=== PATIENT | female | born 1975 | race Caucasian/White ===

== ENCOUNTER → 2016-05-18 | Day surgery (SDC) | payer OTHER ==
[~2016-05-18] MED LIST: ALPRAZolam 0.25 MG TAB ONE; BACITRACIN OINT 1 EACH PACKET TOPICAL ONE; LIDOCAINE 1% INJ 10MG/ML (20 ML MDV) ONE; SODIUM BICARB 4% 5 ML VIAL (0.48 MEQ/ML) ONE
--- NOTE | 2016-05-18 16:02 | MM ---
EXAMINATION TYPE: MG stereo VAD BX LT DATE OF EXAM: 05/18/2016 3:32 PM COMPARISON: NONE CLINICAL HISTORY: Left breast microcalcifications TECHNIQUE: Stereotactic guided core biopsy of left breast. FINDINGS: The procedure of stereotactic guided core biopsy was explained to the patient. Benefits, alternatives, and risks were discussed. An informed consent was then obtained. Local anesthesia was obtained with 1% lidocaine and bicarbonate. The shortness pathway for biopsy was chosen. Shortness pathway was superior approach. Procedure performed by the undersigned. The patient tolerated the procedure well without any immediate complication. The patient was kept in the radiology department for short stay after the procedure and then discharged home in stable condition. Targeted calcifications are identified in specimen mammogram. Post biopsy mammogram shows the clip to appear in satisfactory position relative to the targeted area of concern on the preprocedure images. IMPRESSION: SUCCESSFUL, UNCOMPLICATED STEREOTACTIC GUIDED CORE BIOPSY OF AREA OF CONCERN IN THE left BREAST, FULL PATHOLOGY RESULTS TO FOLLOW. Pathology Results: Benign BREAST, LEFT, STEREOTACTIC CORE BIOPSY: FIBROCYSTIC CHANGE (STROMAL FIBROSIS, CYST FORMATION, APOCRINE METAPLASIA, ADENOSIS, COLUMNAR CELL CHANGE AND DUCT HYPERPLASIA). FOCAL CALCIFICATIONS IDENTIFIED, PENDING XRAY OF CASSETTES AND POSSIBLE DEEPER SECTIONS. ADDENDUM BREAST, LEFT, STEREOTACTIC CORE BIOPSY: FIBROCYSTIC CHANGE (STROMAL FIBROSIS, CYST FORMATION, APOCRINE METAPLASIA, ADENOSIS, COLUMNAR CELL CHANGE AND DUCT HYPERPLASIA). CALCIFICATIONS IDENTIFIED. Recommendation Follow up mammogram of the left breast in 6 months. MTDD
== END ==
LOC: RADMAMWWP 13:38
PROVIDERS: ATTEND Internal Medicine
DX: N60.12 Diffuse cystic mastopathy of left breast (principal); N60.82 Other benign mammary dysplasias of left breast; N60.22 Fibroadenosis of left breast; N60.92 Unspecified benign mammary dysplasia of left breast; R92.1 Mammographic calcification found on diagnostic imaging of breast; R92.8 Other abnormal and inconclusive findings on diagnostic imaging of breast; R92.0 Mammographic microcalcification found on diagnostic imaging of breast
CPT/HCPCS: 88305; 19081; A4648; J2001

== ENCOUNTER → 2017-09-20 | Outpatient (CLI) | payer OTHER ==
--- NOTE | 2017-09-20 11:51 | MM ---
Reason for exam: follow-up at short interval from prior study. Last mammogram was performed 1 year and 4 months ago. History: Patient has history of high-risk lesion on a previous biopsy at age 40. Benign MG stereo VAD BX LT of the left breast, May 18, 2016. Taking hormonal contraceptives beginning at age 23. Physical Findings: Nurse did not find any significant physical abnormalities on exam. MG Diagnostic Mammo w CAD TASNEEM Bilateral CC and MLO view(s) were taken. Prior study comparison: May 11, 2016, left breast MG work up mamm w CAD LT. May 11, 2016, bilateral MG screening mammo w CAD. The breast tissue is extremely dense which could obscure a lesion on mammography. There are similar appearing right upper outer quadrant loosly grouped calcifications. Left biopsy marker noted. Ultrasound upper outer quadrant left breast to compare to prior ultrasound attention 1 o'clock. ASSESSMENT: Incomplete: need additional imaging evaluation, BI-RAD 0 RECOMMENDATION: Ultrasound of the left breast.
--- NOTE | 2017-09-20 12:08 | USB ---
Reason for exam: follow-up at short interval from prior study. History: Patient has history of high-risk lesion on a previous biopsy at age 40. Benign MG stereo VAD BX LT of the left breast, May 18, 2016. Taking hormonal contraceptives beginning at age 23. US Breast Limited LT Left limited breast ultrasound including focal area of concern, retroareolar and axilla demonstrates a 0.5 x 0.6 x 0.2 cm oval hypoechoic lesion at 12 o'clock, a 1.1 x 1.1 x 0.4 cm oval mixed lesion at 1 o'clock that was 1.2 x 0.9 x 0.4 cm on prior exam, a 0.3 x 0.3 x 0.3 cm oval cystic lesion at 1 o'clock, a 0.6 x 0.6 x 0.3 cm oval mixed lesion at 1 o'clock, a 0.4 x 0.3 x 0.2 cm oval lesion at 1 o'clock, a 0.7 x 0.6 x 0.3 cm oval mixed lesion at 2 o'clock previously described at 1 o'clock on prior exam and measured 0.5 x 0.2 x 0.5 cm, These are all probably benign. And a 0.4 x 0.5 x 0.3 cm oval cystic lesion at 2 o'clock, dilated ducts at 3 o'clock, and a 1.3 x 0.9 x 0.5 cm oval cystic lesion at 3 o'clock. Post-nipple ductal ectasia. These results were verbally communicated with the patient and result sheet given to the patient on 09/20/17. ASSESSMENT: Probably benign, BI-RAD 3 RECOMMENDATION: Ultrasound of the left breast in 6 months.
== END | disposition home or self-care (01) ==
LOC: RADMAMWWP 09:03
PROVIDERS: ATTEND Surgery
DX: R92.8 Other abnormal and inconclusive findings on diagnostic imaging of breast (principal)
CPT/HCPCS: 77066

== ENCOUNTER → 2018-04-30 | Outpatient (CLI) | payer OTHER ==
[2018-04-30 07:20] LABS: Basophils % (A) 1 %; Eosinophils # (A) 0.2 k/uL (0-0.7); Eosinophils % (A) 3 %; HCT 42.4 % (34.0-46.0); HGB 13.9 gm/dL (11.4-16.0); Lymphocytes # (A) 1.6 k/uL (1.0-4.8); Lymphocytes % (A) 25 %; MCH 29.8 pg (25.0-35.0); MCHC 32.7 g/dL (31.0-37.0); MCV 91.3 fL (80.0-100.0); Mean Platelet Volume 7.2; Monocytes # (A) 0.3 k/uL (0-1.0); Monocytes % (A) 5 %; Neutrophils # (A) 4.3 k/uL (1.3-7.7); Neutrophils % (A) 65 %; Platelet Count 279 k/uL (150-450); RBC 4.65 m/uL (3.80-5.40); RDW 13.5 % (11.5-15.5); WBC 6.6 k/uL (3.8-10.6)
[2018-04-30 16:04] LABS: Albumin 4.4 g/dL (3.80-4.90); Anion Gap 6.2 mmol/L (4.00-12.00); Calcium 9.3 mg/dL (8.7-10.3); Carbon Dioxide 25.8 mmol/L (21.6-31.8); Globulin 2.2 g/dL (1.6-3.3); LDL Cholesterol,Calculated 85.2 mg/dL (0.0-131.0); Potassium 4.1 mmol/L (3.5-5.5); Total Bilirubin 0.8 mg/dL (0.3-1.2); Total Protein 6.6 g/dL (6.2-8.2); VLDL Calculation 23.8 mg/dL (5.00-40.00)
== END ==
LOC: LABWHC1 06:42
PROVIDERS: ATTEND Internal Medicine
DX: Z00.01 Encounter for general adult medical examination with abnormal findings (principal)
CPT/HCPCS: 36415; 80053; 80061; 85025

== ENCOUNTER → 2018-05-03 | Outpatient (CLI) | payer OTHER ==
--- NOTE | 2018-05-06 09:47 | USB ---
Reason for exam: follow-up at short interval from prior study. History: Patient has history of high-risk lesion on a previous biopsy at age 40. Benign MG stereo VAD BX LT of the left breast, May 18, 2016. Taking hormonal contraceptives beginning at age 23. Physical Findings: Nurse Summary: several cystic areas (nurse kp). US Breast Limited BILAT Right limited breast ultrasound including focal area of concern, retroareolar and axilla demonstrates a 5 x 3 x 4mm oval, cystic lesion at 9 o'clock and a 7 x 4 x 7mm oval, cystic lesion at 11 o'clock. Left complete breast ultrasound includes all four quadrants, the retroareolar region and axilla. Finding demonstrates a 1.1 x 1.2 x 1.4cm cystic cluster at 1 o'clock BB, a 6 x 2 x 6mm oval, cystic, mixed lesion at 2 o'clock BB, a 6 x 3 x 6mm cystic cluster at 10 o'clock BB, a 1.6 x 0.3 x 1.3cm cystic cluster at 11 o'clock BB and a 5 x 3 x 6mm oval, hypoechoic lesion at 4 o'clock increased through transmission favor debris filled cyst. Multiple cystic areas visualized. These results were verbally communicated with the patient and result sheet given to the patient on 05/03/18. ASSESSMENT: Probably benign, BI-RAD 3 RECOMMENDATION: Follow-up diagnostic mammogram of both breasts in 6 months. Back on schedule. Ultrasound of the left breast in 6 months.
== END | disposition home or self-care (01) ==
LOC: RADUSWWP 15:33
PROVIDERS: ATTEND Internal Medicine
DX: N64.9 Disorder of breast, unspecified (principal)

== ENCOUNTER → 2018-10-17 | Outpatient (CLI) | payer OTHER | END | disposition home or self-care (01) | LOC: LABWHC1 14:43 | PROVIDERS: ATTEND Internal Medicine Sleep Medicine | DX: G47.419 Narcolepsy without cataplexy (principal) | CPT/HCPCS: 36415 ==

== ENCOUNTER → 2019-03-19 | Outpatient (CLI) | payer OTHER ==
--- NOTE | 2019-03-19 14:14 | MM ---
Reason for exam: additional evaluation requested from prior study. Last mammogram was performed 1 year and 6 months ago. History: Patient has history of high-risk lesion on a previous biopsy at age 40. Benign MG stereo VAD BX LT of the left breast, May 18, 2016. Taking hormonal contraceptives beginning at age 23. Physical Findings: Nurse did not find any significant physical abnormalities on exam. MG Diagnostic Mammo w CAD TASNEEM Bilateral CC and MLO view(s) were taken. Prior study comparison: September 20, 2017, bilateral MG diagnostic mammo w CAD TASNEEM. May 11, 2016, left breast MG work up mamm w CAD LT. The breast tissue is extremely dense which could obscure a lesion on mammography. There are similar right upper outer quadrant regional calcifications. Left biopsy marker noted. These results were verbally communicated with the patient and result sheet given to the patient on 03/19/19. ASSESSMENT: Incomplete: need additional imaging evaluation, BI-RAD 0 RECOMMENDATION: Ultrasound of the left breast. (as recommended on prior exam)
--- NOTE | 2019-03-19 14:18 | USB ---
Reason for exam: additional evaluation requested from abnormal screening. History: Patient has history of high-risk lesion on a previous biopsy at age 40. Benign MG stereo VAD BX LT of the left breast, May 18, 2016. Taking hormonal contraceptives beginning at age 23. US Breast LT Technologist: Celina Mak Left complete breast ultrasound includes all four quadrants, the retroareolar region and axilla. Finding demonstrates a 1.1 x 1.0 x 0.3cm cystic cluster at 1 o'clock, prior 1.1 x 1.2 x 1.4cm, a 0.7 x 0.6 x 0.5cm cystic cluster at 4 o'clock not seen on prior, a 0.7 x 0.6 x 0.4cm lesion at 10 o'clock, prior 0.6 x 0.3 x 0.6cm, similar in size, a 0.5 x 0.5 x 0.4cm lesion at 11 o'clock involuted from prior 1.6 x 0.3 x 1.3cm, a 0.8 x 0.3cm oval, cystic lesion at 2 o'clock probable lymph node, a 0.7 x 0.6 x 0.3cm lesion at 9 o'clock possibly seen on prior zone B/C 0.5 x 0.3cm and a 0.5 x 0.6 x 0.4cm possible heterogenous breast tissue at 9 o'clock. These results were verbally communicated with the patient and result sheet given to the patient on 03/19/19. ASSESSMENT: Probably benign, BI-RAD 3 RECOMMENDATION: Ultrasound of the left breast in 6 months.
== END | disposition home or self-care (01) ==
LOC: RADMAMWWP 07:13
PROVIDERS: ATTEND Internal Medicine
DX: R92.8 Other abnormal and inconclusive findings on diagnostic imaging of breast (principal)
CPT/HCPCS: 77066

== ENCOUNTER → 2019-09-19 | Outpatient (CLI) | payer OTHER ==
--- NOTE | 2019-09-19 11:53 | USB ---
Reason for exam: follow-up at short interval from prior study. History: Patient has history of high-risk lesion on a previous biopsy at age 40. Benign MG stereo VAD BX LT of the left breast, May 18, 2016. Taking hormonal contraceptives beginning at age 23. Physical Findings: Nurse did not find any significant physical abnormalities on exam. US Breast BILAT Right complete breast ultrasound includes all four quadrants, the retroareolar region and axilla. Finding demonstrates a 0.7 x 0.4 x 0.8cm cystic cluster at 8 o'clock, complex cyst, appeared as a simple cyst on 05/04/19, 6 month follow up recommended. Left complete breast ultrasound includes all four quadrants, the retroareolar region and axilla. Finding demonstrates a 1.4 x 0.4 x 1.4cm cystic cluster at 1 o'clock versus 1.1 x 1.0 x 0.3cm previously, slightly larger now, 6 month follow up recommended, a 0.7 x 0.3 x 0.7cm questionable lymph node, a 0.7 x 0.4 x 0.8cm cystic cluster at 5 o'clock versus 7 x 6 x 5mm previously, continued follow up recommended, a 0.6 x 0.4 x 0.6cm hypoechoic lesion at 5 o'clock with through transmission, possibly debris filled cyst, continued follow up recommended and a 0.7 x 0.3 x 0.6cm lesion at 9 o'clock versus 7 x 6 x 4mm previously, continued 6 month follow up. These results were verbally communicated with the patient and result sheet given to the patient on 09/19/19. ASSESSMENT: Probably benign, BI-RAD 3 RECOMMENDATION: Follow-up diagnostic mammogram and ultrasound of both breasts in 6 months. (right breast 8 o'clock, left whole breast)
== END | disposition home or self-care (01) ==
LOC: RADUSWWP 10:20
PROVIDERS: ATTEND Internal Medicine
DX: R92.8 Other abnormal and inconclusive findings on diagnostic imaging of breast (principal)

== ENCOUNTER → 2019-09-19 | Outpatient (CLI) | payer OTHER ==
[2019-09-19 08:03] LABS: HCT 42.2 % (34.0-46.0); HGB 13.4 gm/dL (11.4-16.0); MCH 29.3 pg (25.0-35.0); MCHC 31.7 g/dL (31.0-37.0); MCV 92.3 fL (80.0-100.0); Mean Platelet Volume 7.1; Platelet Count 268 k/uL (150-450); RBC 4.57 m/uL (3.80-5.40); RDW 12.4 % (11.5-15.5)
[2019-09-19 12:36] LABS: African American GFR (CKD) 105.4 (60.0-200.0); Albumin 4.2 g/dL (3.80-4.90); Albumin/Globulin Ratio 1.91 (1.60-3.17); Anion Gap 6.9 mmol/L (4.00-12.00); Calcium 9.2 mg/dL (8.7-10.3); Carbon Dioxide 25.1 mmol/L (21.6-31.8); Chol/HDL Ratio 3.45; Globulin 2.2 g/dL (1.6-3.3); LDL Cholesterol,Calculated 109.4 mg/dL (0.0-131.0); Non-African American GFR(CKD) 90.9 (60.0-200.0); Total Bilirubin 0.9 mg/dL (0.2-1.2); Total Protein 6.4 g/dL (6.2-8.2); VLDL Calculation 15.6 mg/dL (5.00-40.00)
== END | disposition home or self-care (01) ==
LOC: LABWHC1 07:37
PROVIDERS: ATTEND Internal Medicine
DX: Z00.01 Encounter for general adult medical examination with abnormal findings (principal); M25.00 Hemarthrosis, unspecified joint
CPT/HCPCS: 36415; 80053; 80061; 82306; 84443; 85027

== ENCOUNTER → 2020-04-05 | Outpatient (CLI) | payer OTHER ==
--- NOTE | 2020-04-06 14:39 | MM ---
Reason for exam: additional evaluation requested from prior study. Last mammogram was performed 1 year and 1 month ago. History: Patient has history of high-risk lesion on a previous biopsy at age 40. Benign MG stereo VAD BX LT of the left breast, May 18, 2016. Taking hormonal contraceptives beginning at age 23. Physical Findings: Nurse did not find any significant physical abnormalities on exam. MG Diagnostic Mammo w CAD TASNEEM Bilateral CC and MLO view(s) were taken. Prior study comparison: September 19, 2019, bilateral US breast BILAT. March 19, 2019, bilateral MG diagnostic mammo w CAD TASNEEM. September 20, 2017, bilateral MG diagnostic mammo w CAD TASNEEM. May 11, 2016, bilateral MG screening mammo w CAD. Previous mammotome biopsy in the left breast. Regional calcifications peripheral posterior upper outer quadrant right breast were present previously. Three punctate calcifications left upper outer quadrant do not form a group at this time, 6 month follow up recommended. Grouped calcifications central and lateral just adjacent seen to be new/increased, biopsy recommended. Additional anterior lateral calcifications on CC view, biopsy recommended. These results were verbally communicated with the patient and result sheet given to the patient on 04/05/20. ASSESSMENT: Incomplete: need additional imaging evaluation, BI-RAD 0 RECOMMENDATION: Ultrasound of both breasts.
--- NOTE | 2020-04-06 14:45 | USB ---
Reason for exam: additional evaluation requested from abnormal screening. History: Patient has history of high-risk lesion on a previous biopsy at age 40. Benign MG stereo VAD BX LT of the left breast, May 18, 2016. Taking hormonal contraceptives beginning at age 23. US Breast Limited BILAT Right limited breast ultrasound including focal area of concern, retroareolar and axilla demonstrates a 0.8 x 0.4 x 0.9cm cystic cluster at 8 o'clock versus 8 x 7 x 4mm previously. Left complete breast ultrasound includes all four quadrants, the retroareolar region and axilla. Finding demonstrates a 1.4 x 0.3 x 1.3cm cystic cluster at 1 o'clock versus 1.4 x 1.4 x 0.4cm previously, a 0.8 x 0.3 x 0.6cm questionable lymph node at 2 o'clock versus 7 x 7 x 3mm previously, a 0.8 x 0.3 x 0.6cm cystic cluster at 5 o'clock versus 8 x 7 x 4mm previously, a 0.5 x 0.4 x 0.5cm hypoechoic lesion at 5 o'clock versus 6 x 6 x 4mm previously and a 0.9 x 0.4 x 0.6cm hypoechoic lesion at 10 o'clock versus 7 x 6mm previously. Right scanned 6-12 o'clock. Left scanned entire breast. These results were verbally communicated with the patient and result sheet given to the patient on 04/05/20. ASSESSMENT: Suspicious, BI-RAD 4 RECOMMENDATION: Stereotactic core biopsy of the right breast. (2 sites, as marked on the MAG CC images) Called office with mammographic findings and has scheduled an appointment for the patient for 05/03/20 at 4:[address] Henley. Biopsy scheduled for 04/22/20 at 8:00. PRELIMINARY REPORT CALLED AND FAXED TO DR. HENLEY ON 04/06/20. Follow-up diagnostic mammogram of the left breast in 6 months. Ultrasound of both breasts in 6 months.
== END ==
LOC: RADMAMWWP 14:20
PROVIDERS: ATTEND Internal Medicine
DX: R92.1 Mammographic calcification found on diagnostic imaging of breast (principal)
CPT/HCPCS: 77066

== ENCOUNTER → 2020-04-26 | Day surgery (SDC) | payer OTHER ==
[2020-04-26 07:21] VITALS: RESP 16; TEMP 98.3
[2020-04-26 09:38] VITALS: BP 119/81; PULSE 69
--- NOTE | 2020-04-26 11:51 | MM ---
Stereotactic Mammotome core biopsy right breast x2. HISTORY: Microcalcifications right breast 2 sites The microcalcifications in question within the right breast were targeted by the undersigned. Procedure was performed by the undersigned. Informed consent was obtained and all of the patients questions were answered. The standard sterile technique was utilized and appropriate local anesthesia was obtained with 1% lidocaine and 1% lidocaine and epinephrine at each site.. Mammotome probe was advanced and multiple core samples were obtained and sent to pathology for interpretation at each site. Microclip markers were deployed at the sites of biopsy. Post procedural mammogram demonstrates appropriate deployment of radiopaque clip markers. The patient tolerated the procedure well and left the department in stable condition. Pathology results are pending. IMPRESSION: Successful stereotactic core biopsy right breast 2 sites with pathology results pending. Pathology Results: Benign A. RIGHT BREAST POSTERIOR, STEREOTACTIC CORE BIOPSY: Fibrocystic changes including cysts with calcifications, apocrine metaplasia, fibrosis, adenosis, columnar cell change, and mild usual type ductal hyperplasia. B. RIGHT BREAST ANTERIOR, STEREOTACTIC CORE BIOPSY: Fibrocystic changes including cysts with calcifications, fibrosis, adenosis and columnar cell change. Recommendation Follow up mammogram of the right breast in 6 months. LIBORIO
== END ==
LOC: RADMAMWWP 07:06
PROVIDERS: ATTEND Internal Medicine
DX: N60.11 Diffuse cystic mastopathy of right breast (principal); N60.21 Fibroadenosis of right breast
CPT/HCPCS: 88305; 19081; 19082; A4648; J2001

== ENCOUNTER → 2020-09-23 | Outpatient (CLI) | payer OTHER ==
[2020-09-23 16:04] LABS: Basophils # (A) 0.05 X 10*3/uL (0.00-0.10); Basophils % (A) 0.6 %; Eosinophils # (A) 0.07 X 10*3/uL (0.04-0.35); Eosinophils % (A) 0.8 %; HCT 40.7 % (37.2-46.3); HGB 12.9 g/dL (12.0-15.0); Lymphocytes % (A) 15.7 %; MCH 30.4 pg (27.0-32.0); MCHC 31.7 g/dL (32.0-37.0); Monocytes # (A) 0.51 X 10*3/uL (0.20-1.00); Monocytes % (A) 6.2 %; Neutrophils # (A) 6.33 X 10*3/uL (1.80-7.70); Neutrophils % (A) 76.3 %; Platelet Count 262 X 10*3/uL (140-440); RBC 4.24 X 10*6/uL (4.10-5.20); RDW 13.1 % (11.5-14.5); WBC 8.29 X 10*3/uL (4.50-10.00)
[2020-09-23 17:46] LABS: African American GFR (CKD) 79.9 (60.0-200.0); Albumin 4.7 g/dL (3.80-4.90); Albumin/Globulin Ratio 1.81 (1.60-3.17); Calcium 9.4 mg/dL (8.7-10.3); Chol/HDL Ratio 3.24; Globulin 2.6 g/dL (1.6-3.3); LDL Cholesterol,Calculated 105.4 mg/dL (0.0-131.0); Non-African American GFR(CKD) 68.9 (60.0-200.0); Potassium 4.3 mmol/L (3.5-5.5); Total Bilirubin 1.3 mg/dL (0.2-1.2); Total Protein 7.3 g/dL (6.2-8.2); VLDL Calculation 17.6 mg/dL (5.00-40.00)
== END | disposition home or self-care (01) ==
LOC: LABWHC1 10:34
PROVIDERS: ATTEND Internal Medicine
DX: Z00.01 Encounter for general adult medical examination with abnormal findings (principal); Z13.220 Encounter for screening for lipoid disorders; Z13.228 Encounter for screening for other metabolic disorders
CPT/HCPCS: 36415; 80053; 80061; 85025

== ENCOUNTER → 2020-11-03 | Outpatient (CLI) | payer OTHER ==
--- NOTE | 2020-11-03 14:39 | MM ---
Reason for exam: follow-up at short interval from prior study. Last mammogram was performed 7 months ago. History: Patient has history of high-risk lesion on a previous biopsy at age 40. Benign MG stereo VAD BX addl RT of the right breast, April 26, 2020. Benign MG stereo VAD BX RT of the right breast, April 26, 2020. Benign MG stereo VAD BX LT of the left breast, May 18, 2016. Taking hormonal contraceptives beginning at age 23. Physical Findings: Nurse did not find any significant physical abnormalities on exam. MG Diagnostic Mammo RT w CAD CC and MLO view(s) were taken of the right breast. Prior study comparison: April 05, 2020, bilateral MG diagnostic mammo w CAD TASNEEM. March 19, 2019, bilateral MG diagnostic mammo w CAD TASNEEM. The breast tissue is heterogeneously dense. This may lower the sensitivity of mammography. Stable sampled calcifications upper outer right breast. Previous mammotome biopsy in the right breast. No significant new findings when compared with previous films. These results were verbally communicated with the patient and result sheet given to the patient on 11/03/20. ASSESSMENT: Benign, BI-RAD 2 RECOMMENDATION: Routine screening mammogram of both breasts in 6 months. Back on schedule for April 2021.
== END | disposition home or self-care (01) ==
LOC: RADMAMWWP 13:07
PROVIDERS: ATTEND Internal Medicine
DX: R92.8 Other abnormal and inconclusive findings on diagnostic imaging of breast (principal)
CPT/HCPCS: 77065

== ENCOUNTER → 2020-11-17 | Outpatient (CLI) | payer OTHER ==
--- NOTE | 2020-11-17 08:03 | MR ---
EXAMINATION TYPE: MR sacroiliac joints wo con DATE OF EXAM: 11/17/2020 COMPARISON: None. HISTORY: Ankylosing spondylitis of spine, sacroiliitis, lower back pain x 6 months Standard multiplanar, multisequence MRI departmental protocol Multiplanar, multisequence images of the pelvis were acquired without contrast. Imaging performed foc using on bilateral sacroiliac joints. FINDINGS: Exam slightly suboptimal as only performed without contrast. Sacroiliac joints appear symme tric without suspicious narrowing or spurring. Adjacent joint spaces show no significant erosive almazan ges or adjacent edema. Visualized lower lumbar spine and sacrum appear within normal limits. Visualized portion of pelvic st ructures show nondilated bowel loops. No concerning pelvic fluid collection is seen. IMPRESSION: No MRI evidence for active or chronic significant sacroiliitis.
== END | disposition home or self-care (01) ==
LOC: RADMRIMAIN 06:06
PROVIDERS: ATTEND Nurse Practitioner Family
DX: M45.9 Ankylosing spondylitis of unspecified sites in spine (principal)
CPT/HCPCS: 72195

== ENCOUNTER → 2021-01-13 | Outpatient (CLI) | payer OTHER ==
[2021-01-13 09:05] LABS: Basophils # (A) 0.1 k/uL (0-0.2); Basophils % (A) 1 %; Eosinophils # (A) 0.1 k/uL (0-0.7); Eosinophils % (A) 2 %; HCT 41.2 % (34.0-46.0); HGB 13.5 gm/dL (11.4-16.0); Lymphocytes # (A) 1.3 k/uL (1.0-4.8); Lymphocytes % (A) 22 %; MCH 31.3 pg (25.0-35.0); MCHC 32.7 g/dL (31.0-37.0); MCV 95.5 fL (80.0-100.0); Mean Platelet Volume 7.1; Monocytes # (A) 0.3 k/uL (0-1.0); Monocytes % (A) 5 %; Neutrophils # (A) 3.7 k/uL (1.3-7.7); Neutrophils % (A) 67 %; Platelet Count 296 k/uL (150-450); RBC 4.32 m/uL (3.80-5.40); WBC 5.6 k/uL (3.8-10.6)
== END | disposition home or self-care (01) ==
LOC: LABPAT 07:55
PROVIDERS: ATTEND Obstetrics & Gynecology
DX: Z01.812 Encounter for preprocedural laboratory examination (principal)
CPT/HCPCS: 36415; 85025

== ENCOUNTER 2021-01-20 08:19 | Day surgery (SDC) | payer OTHER ==
[2021-01-19 12:19] VITALS: BMI 21.2
--- NOTE | 2021-01-19 17:25 | P.HPOB ---
History of Present Illness H&P Date: 01/19/21 Chief Complaint: Family planning Patient is a 45-year-old female who is completed her family planning and desires permanent sterilization. Risks/benefits/alternatives to laps scopic tubal occlusion with the scopes was reviewed with the patient in detail as well as surgical technique. Risks did include but were not limited to bleeding and infection, damage to bladder or bowel, vascular disease, nerve injuries potential need for further surgery. Failure rate of approximately 4 per thousand area this procedure she is aware is designed to be permanent and not designed to be reversed. On physical exam vital signs are stable and afebrile. Heart regular, lungs clear, extremities are without pain. Abdomen is soft and nontender pelvic exam is otherwise unremarkable. Family planning. Plan laps up tubal occlusion Filshie clips Past Medical History Past Medical History: No Reported History Additional Past Medical History / Comment(s): sjogren's disease, chronic back pain, positive covid 37 days ago-still a little residual congestion History of Any Multi-Drug Resistant Organisms: None Reported Past Surgical History: Breast Surgery Additional Past Surgical History / Comment(s): bilateral eye surgery, breast biopsy x2, oral surg. Past Anesthesia/Blood Transfusion Reactions: No Reported Reaction Additional Past Anesthesia/Blood Transfusion Reaction / Comment(s): is a redhead, seems to require more anethesia than normal per pt. Smoking Status: Former smoker - Past Family History Mother Family Medical History: No Reported History Medications and Allergies Home Medications Medication Instructions Recorded Confirmed Type Norethindrone AC-Eth Estradiol 1 tab PO DAILY 04/13/20 01/19/21 History [Loestrin 21 1.5-30 Tablet] Allergies Allergy/AdvReac Type Severity Reaction Status Date / Time adhesive Allergy Rash/Hives Verified 01/19/21 12:16 Exam Osteopathic Statement: *. No significant issues noted on an osteopathic structural exam other than those noted in the History and Physical/Consult. Intake and Output 01/19/21 01/19/21 01/19/21 06:59 14:59 22:59 Other: Weight 65.317 kg - OBG Physical Exam Breast: both: normal (no masses) Abdomen: bowel sounds normal, no diffuse tenderness, no bruit present, no guarding noted, no hepatomegaly, no splenomegaly, no mass Vulva: both: normal Vagina: normal moisture, no discharge Cervix: no lesion, no discharge Uterus: normal size, normal contour Adnexa: both: normal Anus/Rectum: normal perianal skin, no rectal mass, no hemorrhoids, heme negative
[~2021-01-20 08:19] MED LIST changes: -ALPRAZolam 0.25 MG TAB ONE; -BACITRACIN OINT 1 EACH PACKET TOPICAL ONE; +DEXAMETHASONE SOD PHOSPHATE 4 MG/ML 1 ML VIAL IV ONE; +LACTATED RINGERS 1,000 ML IV SCH; +LIDOCAINE 1% (10MG/ML) FOR IV START INTRADERMA PRN; -LIDOCAINE 1% INJ 10MG/ML (20 ML MDV) ONE; +MIDAZOLAM 2 MG/2 ML VIAL IV PRN; +Pre Op ABX Message 1 EACH MISC MISCELLANE ONE; -SODIUM BICARB 4% 5 ML VIAL (0.48 MEQ/ML) ONE
[2021-01-20 08:42] VITALS: RESP 16
[2021-01-20] MEDS ORDERED: BUPIVACAINE (PF) 0.25% 30 ML VIAL SQ ONE ×2 (08:47→09:59)
[2021-01-20] MEDS: ONDANSETRON 4 MG/2 ML VIAL IVP ONE ×2 (09:00→10:20)
[2021-01-20] MEDS ORDERED: SCOPOLAMINE 1.5MG/72HR PATCH TRANSDERM ONE (09:05)
[2021-01-20] MEDS ORDERED: .fentaNYL (PF) 50 MCG/ML 2 ML AMP ONE (09:26)
[2021-01-20] MEDS ORDERED: KETOROLAC 15 MG/ML 1 ML VIAL ONE (09:26)
[2021-01-20] MEDS ORDERED: LIDOCAINE 1% INJ 10MG/ML (20 ML MDV) ONE (09:26)
[2021-01-20] MEDS ORDERED: PROPOFOL 10 MG/ML 20 ML VIAL IV ONE (09:26)
[2021-01-20] MEDS ORDERED: ROCURONIUM 10 MG/ML (5 ML VIAL) IV ONE (09:26)
[2021-01-20] MEDS ORDERED: SUCCINYLCHOLINE CHLORIDE 100 MG/5 ML SYR IV ONE (09:26)
[2021-01-20] MEDS ORDERED: GLYCOPYRROLATE 0.2 MG/ML 2 ML VIAL ONE (09:26)
[2021-01-20] MEDS ORDERED: MIDAZOLAM 2 MG/2 ML VIAL ONE (09:26)
[2021-01-20] MEDS ORDERED: NEOSTIGMINE 1 MG/ML 10 ML VIAL ONE (09:26)
--- NOTE | 2021-01-20 10:14 | P.OP ---
Date of Procedure: 01/20/21 Preoperative Diagnosis: Family planning Postoperative Diagnosis: Same Procedure(s) Performed: Laparoscopic tubal occlusion Filshie clips Anesthesia: STEPHANY Surgeon: Flaco Mullins Estimated Blood Loss (ml): 3 IV fluids (ml): 700 Urine output (ml): 30 Pathology: none sent Condition: stable Disposition: same day Operative Findings: Normal female anatomy. Incidental finding of scarring of the colon to the anterior abdominal wall on the right side Description of Procedure: Patient was taken to the operating suite where a general anesthetic was found be adequate. She was prepped and draped in normal sterile fashion and placed in the dorsal lithotomy position. Initially a speculum was inserted into the vagina and the anterior lip of the cervix was identified and grasped with single-tooth tenaculum. Cervix was then sounded to 9 cm and a uterine manipulator was inserted without difficulty. Red rubber catheter was then used to drain the bladder of urine and all other incidents were were removed from the vagina. Gloves were then changed and attention was turned to abdominal portion of the procedure where 2 mL of quarter percent Marcaine were injected periumbilically and through this injected anesthetic a 5 mm skin incision was made and through this incision, under direct visualization with an optical trocar and sleeve the camera, the camera was inserted. Once peritoneal placement was assured gas was allowed to fully insufflate the abdomen and patient's placement steep Trendelenburg position. Second 8 mm skin incision was then made 3 cm above the pubic symphysis in the midline and a port and sleeve were inserted again inserted under direct visualization. Observations pelvis were noted this time. First the right sloping tube than the left fallopian tube pedicles clip applied 2 cm from uterine uterine cornu. With no bleeding noted in the mesosalpinx inspection the remainder of the abdomen revealed scarring of the ascending colon to the anterior abdominal wall the right side no clear reason for that was noted however it was left alone. All incidents were then removed and gas was allowed to expel from the abdomen. 5 deep breaths were provided during this process. 4-0 Vicryl was then used to close the incision subcuticularly and the remaining 8 mL of quarter Marcaine was injected around these incisions. Incidents were then removed from the vagina. Sponge, lap, needle counts were all correct 2. Patient was then taken to the recovery room in stable and satisfactory condition. Plan - Discharge Summary Discharge Rx Participant: No New Discharge Prescriptions: New Ibuprofen [Motrin] 600 mg PO Q6HR PRN #30 tab PRN Reason: Pain Acetaminophen-Codeine 300-30mg [Tylenol #3] 1 tab PO Q4H PRN #20 tablet PRN Reason: Pain No Action Norethindrone AC-Eth Estradiol [Loestrin 21 1.5-30 Tablet] 1 tab PO DAILY Discharge Medication List Norethindrone AC-Eth Estradiol [Loestrin 21 1.5-30 Tablet] 1 tab PO DAILY 04/13/20 [History] Acetaminophen-Codeine 300-30mg [Tylenol #3] 1 tab PO Q4H PRN #20 tablet 01/20/21 [Rx] Ibuprofen [Motrin] 600 mg PO Q6HR PRN #30 tab 01/20/21 [Rx] Follow up Appointment(s)/Referral(s): Flaco Mullins DO [Doctor of Osteopathic Medicine] - 2 Weeks Activity/Diet/Wound Care/Special Instructions: No heavy lifting, limit stairs and driving, and pelvic rest. If any high temperatures, heavy bleeding, or severe pain please notify our office. No tub baths for 2 weeks but showering is fine. Discharge Disposition: HOME SELF-CARE
[2021-01-20] MEDS: HYDROmorphone 0.5 MG/0.5 ML SYRINGE IVP PRN ×4 (10:19→10:35)
[2021-01-20 10:21] VITALS: TEMP 98.3
[2021-01-20] MEDS ORDERED: MEPERIDINE 50 MG/ML SYRINGE IVP ONE (10:40)
[2021-01-20 11:54] VITALS: BP 128/77; PULSE 67
== END 2021-01-20 12:14 | disposition home or self-care (01) ==
LOC: OR 08:19
PROVIDERS: ATTEND Obstetrics & Gynecology
DX: Z30.2 Encounter for sterilization (principal); M35.00 Sjogren syndrome, unspecified; G89.29 Other chronic pain; M54.9 Dorsalgia, unspecified; Z86.16 Personal history of COVID-19; Z98.890 Other specified postprocedural states; Z87.891 Personal history of nicotine dependence; Z79.3 Long term (current) use of hormonal contraceptives; Z91.09 Other allergy status, other than to drugs and biological substances; Z88.1 Allergy status to other antibiotic agents; Z88.8 Allergy status to other drugs, medicaments and biological substances
CPT/HCPCS: 58671; 81025; J2250; J1100; J2710; J2175; J2405; J2001; J3010; J1885; J0330; J2704; J1170

== ENCOUNTER → 2021-05-19 | Outpatient (CLI) | payer OTHER ==
--- NOTE | 2021-05-19 13:48 | ECHOF ---
Referral Reason:R00.2 Palpitations MEASUREMENTS -------- HEIGHT: 175.3 cm WEIGHT: 65.8 kg BP: RVIDd: 2.9 cm (< 3.3) IVSd: 0.9 cm (0.6 - 1.1) LVIDd: 4.1 cm (3.9 - 5.3) LVPWd: 1.2 cm (0.6 - 1.1) IVSs: 1.3 cm LVIDs: 2.9 cm LVPWs: 1.5 cm LA Diam: 2.8 cm (2.7 - 3.8) Ao Diam: 3.0 cm (2.0 - 3.7) AV Cusp: 1.8 cm (1.5 - 2.6) MV EXCURSION: 15.228 mm (> 18.000) MV EF SLOPE: 92 mm/s (70 - 150) EPSS: 0.3 cm MV E Sharath: 0.76 m/s MV DecT: 207 ms MV A Sharath: 0.65 m/s MV E/A Ratio: 1.17 RAP: 5.00 mmHg RVSP: 17.61 mmHg FINDINGS -------- Sinus rhythm. This was a technically good study. LV size, wall thickness and systolic function are normal, with an EF greater than 55%. The left marian tricular size is normal. The right ventricle is normal in size. The left atrial size is normal. The right atrial size is normal. There is mild aortic valve sclerosis. Mild mitral regurgitation is present. Mild tricuspid regurgitation present. Right ventricular systolic pressure is normal at < 35 mmHg. There is no pulmonic regurgitation present. There is no pericardial effusion. CONCLUSIONS -------- 1. LV size, wall thickness and systolic function are normal, with an EF greater than 55%. 2. The left ventricular size is normal. 3. The right ventricle is normal in size. 4. The left atrial size is normal. 5. The right atrial size is normal. 6. There is mild aortic valve sclerosis. 7. Mild mitral regurgitation is present. 8. Mild tricuspid regurgitation present. 9. There is no pericardial effusion. WINDING DEPARTMENT SUPERVISOR: Brandee Corona RDCS
== END | disposition home or self-care (01) ==
LOC: RADECHMAIN 11:56
PROVIDERS: ATTEND Family Medicine
DX: R00.2 Palpitations (principal); I34.0 Nonrheumatic mitral (valve) insufficiency; I07.1 Rheumatic tricuspid insufficiency
CPT/HCPCS: 93306

== ENCOUNTER → 2021-11-17 | Outpatient (CLI) | payer BC, OTHER ==
--- NOTE | 2021-11-18 08:02 | XR ---
EXAMINATION TYPE: XR Hip Complete LT DATE OF EXAM: 11/17/2021 COMPARISON: None HISTORY: Pain TECHNIQUE: 2 view left hip FINDINGS: Femoral head articulates with the acetabulum. Joint space is preserved. No acute fracture o r dislocation is evident. IMPRESSION: 1. No acute osseous abnormalities left hip
== END | disposition home or self-care (01) ==
LOC: RADXRMAIN 16:02
PROVIDERS: ATTEND Family Medicine
DX: M25.552 Pain in left hip (principal)
CPT/HCPCS: 73502

== ENCOUNTER → 2022-05-29 | Outpatient (CLI) | payer BC, OTHER ==
--- NOTE | 2022-05-30 19:07 | MM ---
Reason for Exam: Screening (asymptomatic). Last screening mammogram was performed 12 month(s) ago. Patient History: Menarche at age 15. First Full-Term at age 21. Patient has history of breast feeding. Hormonal Contraceptives, starting at age 23. 04/26/2020, Benign Core Biopsy on the right side. 04/26/2020, Benign Core Biopsy on the right side. 05/18/2016, Benign Core Biopsy on the left side. Last menstrual period: 05/28/2022 Risk Values: Lyla 5 year model risk: 1.8%. NCI Lifetime model risk: 12.3%. Prior Study Comparison: 04/05/2020 Bilateral Diagnostic Mammogram, [facility]. 11/03/2020 Right Diagnostic Mammogram, [facility]. 05/10/2021 Bilateral Screening Mammogram, [facility]. Tissue Density: The breast tissue is heterogeneously dense. This may lower the sensitivity of mammography. Findings: Analyzed By CAD. Residual microcalcifications posterior upper outer quadrant right breast with 2 microclip in the right from prior biopsies. Additional microclip left breast from prior biopsy. No significant change from prior exams. Overall Assessment: Benign, BI-RAD 2 Management: Screening Mammogram of both breasts in 1 year. 1. Patient should continue monthly self breast exams. 2. A clinical breast exam by your physician is recommended on an annual basis. 3. This exam should not preclude additional follow-up of suspicious palpable abnormalities. Electronically signed and approved by: Peyman Zaidi M.D. Radiologist
== END | disposition home or self-care (01) ==
LOC: RADMAMWWP 14:58
PROVIDERS: ATTEND Family Medicine
DX: Z12.31 Encounter for screening mammogram for malignant neoplasm of breast (principal)
CPT/HCPCS: 77063; 77067

== ENCOUNTER → 2022-12-25 | Outpatient (CLI) | payer BC, OTHER ==
[2022-12-25 11:06] LABS: Basophils # (A) 0.05 X 10*3/uL (0.00-0.10); Basophils % (A) 0.7 %; Eosinophils # (A) 0.25 X 10*3/uL (0.04-0.35); Eosinophils % (A) 3.7 %; HCT 38.4 % (37.2-46.3); HGB 12.7 g/dL (12.0-15.0); Lymphocytes # (A) 1.35 X 10*3/uL (0.90-5.00); Lymphocytes % (A) 19.8 %; MCH 30.8 pg (27.0-32.0); MCHC 33.1 g/dL (32.0-37.0); MCV 93.2 FL (80.0-97.0); Mean Platelet Volume 9.5 FL (9.5-12.2); Monocytes # (A) 0.65 X 10*3/uL (0.20-1.00); Monocytes % (A) 9.5 %; NRBC Per 100 WBC 0 X 10*3/uL (0.00-0.01); Neutrophils # (A) 4.51 X 10*3/uL (1.80-7.70); Platelet Count 240 X 10*3/uL (140-440); RBC 4.12 X 10*6/uL (4.10-5.20); RDW 13.2 % (11.5-14.5); WBC 6.83 X 10*3/uL (4.50-10.00)
[2022-12-25 11:34] LABS: BUN/Creat Ratio 18.62 Ratio (12.00-20.00); Blood Urea Nitrogen 14.9 mg/dL (9.0-27.0); Carbon Dioxide 24.6 mmol/L (21.6-31.8); Chloride 106 mmol/L (96-109); Glucose 110 mg/dL (70-110); Potassium 4.3 mmol/L (3.5-5.5); Sodium 139 mmol/L (135-145); T4, Free (Free Thyroxine) 0.89 ng/dL (0.80-1.80)
== END | disposition home or self-care (01) ==
LOC: LABWHC1 07:28
PROVIDERS: ATTEND Family Medicine
DX: R55 Syncope and collapse (principal)
CPT/HCPCS: 36415; 80048; 84439; 84443; 85025

== ENCOUNTER → 2022-12-29 | Outpatient (CLI) | payer BC, OTHER ==
--- NOTE | 2022-12-29 14:48 | CT ---
EXAMINATION TYPE: CT abdomen pelvis wo con CT DLP: 645 mGycm, Automated exposure control for dose reduction was used. DATE OF EXAM: 12/29/2022 2:15 PM COMPARISON: None CLINICAL INDICATION:Female, 47 years old with history of R31.29 OTHER MICROSCOPIC HEMATURIA; abdomina l discomfort, flank pain TECHNIQUE: Axial CT of the ;CT abdomen pelvis wo con;Sagittal and coronal reformats were created on a separate workstation. Contrast used: mL of , (none if empty) Oral contrast used: without Oral Contrast (none if empty) FINDINGS: LOWER CHEST: Unremarkable ABDOMEN LIVER: Unremarkable GALLBLADDER AND BILE DUCTS: Unremarkable. PANCREAS: Unremarkable. SPLEEN: Unremarkable. ADRENAL GLANDS: Unremarkable. KIDNEYS AND URETERS: No evidence of hydronephrosis or renal calculus. The ureters are unremarkable. PELVIS BLADDER: Unremarkable REPRODUCTIVE: Bilateral tubal ligation clips. ABDOMEN & PELVIS STOMACH AND BOWEL: No evidence of bowel obstruction. Large amount stool throughout the colon. PERITONEUM/RETROPERITONEUM: No evidence of pneumoperitoneum or free fluid. VASCULATURE: No evidence of aortic aneurysm. MUSCULOSKELETAL: No acute osseous abnormalities LYMPH NODES: No gross evidence for lymphadenopathy. SOFT TISSUE/ABDOMINAL WALL: Unremarkable IMPRESSION: No evidence for renal calculus or obstructive uropathy. There is moderate to large amount stool throu ghout the colon. Correlate for constipation.
== END | disposition home or self-care (01) ==
LOC: RADCTMAIN 14:02
PROVIDERS: ATTEND Family Medicine
DX: R31.29 Other microscopic hematuria (principal); R19.5 Other fecal abnormalities
CPT/HCPCS: 74176

== ENCOUNTER → 2023-12-17 | Outpatient (CLI) | payer BC, OTHER ==
--- NOTE | 2023-12-24 12:04 | MM ---
Reason for Exam: Screening (asymptomatic). Last mammogram was performed 1 year(s) and 7 month(s) ago. Patient History: Menarche at age 15. First Full-Term at age 21. Patient has history of breast feeding. Hormonal Contraceptives, starting at age 23. 04/26/2020, Benign Core Biopsy on the right side. 04/26/2020, Benign Core Biopsy on the right side. 05/18/2016, Benign Core Biopsy on the left side. Last menstrual period: 12/16/2023 Risk Values: Lyla 5 year model risk: 1.5%. NCI Lifetime model risk: 11.7%. Prior Study Comparison: 11/03/2020 Right Diagnostic Mammogram, [facility]. 05/10/2021 Bilateral Screening Mammogram, [facility]. 05/29/2022 Bilateral MG 3D screening mammo w/cad, [facility]. Tissue Density: The breasts are heterogeneously dense, which may obscure small masses. Findings: Analyzed By CAD. Bilateral breast biopsy clips. Right breast: There is no suspicious group of microcalcifications or new suspicious mass. Left breast: There is no suspicious group of microcalcifications or new suspicious mass. Overall Assessment: Negative, BI-RAD 1 Management: Screening Mammogram of both breasts in [address] [facility] will attempt to contact patient to return for supplemental views and ultrasound if indicated. Patient should continue monthly self-breast exams. A clinical breast exam by your physician is recommended on an annual basis. This exam should not preclude additional follow-up of suspicious palpable abnormalities. Note on Lyla scores and lifetime risk: 1. A Lyla score greater than 3% is considered moderate risk. If this is the case, consider specialist referral to assess eligibility for a risk reducing agent. 2. If overall lifetime risk for the development of breast cancer is 20% or higher, the patient may qualify for future screening with alternating mammogram and breast MRI. [facility], , 12/24/2023 12:01 PM. Electronically signed and approved by: Zi Bobo DO
== END | disposition home or self-care (01) ==
LOC: RADMAMWWP 07:08
PROVIDERS: ATTEND Family Medicine
DX: Z12.31 Encounter for screening mammogram for malignant neoplasm of breast (principal); R92.333 Mammographic heterogeneous density, bilateral breasts
CPT/HCPCS: 77063; 77067

== ENCOUNTER → 2024-04-07 | Outpatient (CLI) | payer BC, OTHER ==
--- NOTE | 2024-04-07 07:12 | CT ---
EXAMINATION TYPE: CT sinus wo con DATE OF EXAM: 04/07/2024 6:45 AM COMPARISON: None. CLINICAL INDICATION: Female, 48 years old with history of J32.9 chronic sinusitis, sinusitis, TECHNIQUE: Axial CT was performed with sagittal and coronal reformats. IV CONTRAST: , patient injected with mL of . (None if empty) CT DLP: 738 mGycm, Automated exposure control for dose reduction was used. FINDINGS: The paranasal sinuses demonstrate normal aeration and development. There is minimal mucosal thickening involving the maxillary sinuses and sphenoid sinus. No air-fluid level seen. There is also minimal ethmoidal sinus mucosal thickening. Mucosal thickening at the level of the left ostiomeatal unit results in at least partial obstruction on the left. Right sided ostiomeatal unit is patent. The nasal septum is midline. No bony destructive changes are seen within the field of view. IMPRESSION: Mild chronic sinusitis as noted. At least partial left-sided ostiomeatal unit obstruction . [facility], , 04/07/2024 7:10 AM
== END | disposition home or self-care (01) ==
LOC: RADCTMAIN 06:20
PROVIDERS: ATTEND Otolaryngology
DX: J32.0 Chronic maxillary sinusitis (principal); J34.89 Other specified disorders of nose and nasal sinuses
CPT/HCPCS: 70486

== ENCOUNTER → 2024-04-07 | Outpatient (CLI) | payer BC, OTHER ==
[2024-04-07 20:36] LABS: Alternaria alternata IgE <0.10 kU/L; Aspergillus fumagatus IgE <0.10 kU/L; Birch IgE <0.10 kU/L; Cat Epith & Dander IgE <0.10 kU/L; Cladosporian herbarum IgE <0.10 kU/L; Cockroach IgE <0.10 kU/L; Dermato. farinae IgE <0.10 kU/L; Dog Dander IgE <0.10 kU/L; Elm IgE <0.10 kU/L; Maple (Box Elder) IgE <0.10 kU/L; Oak IgE <0.10 kU/L; Ragweed,Common IgE <0.10 kU/L; Red Top (Bentgrass) IgE <0.10 kU/L
== END | disposition home or self-care (01) ==
LOC: LABWHC1 07:06
PROVIDERS: ATTEND Otolaryngology
DX: L50.0 Allergic urticaria (principal); J30.89 Other allergic rhinitis; B44.89 Other forms of aspergillosis
CPT/HCPCS: 36415; 82785; 86003